=== PATIENT | male | born 1980 | race American Indian/Alaskan Native ===

== ENCOUNTER 2017-03-10 13:26 | Emergency (ER) | payer OTHER ==
[2017-03-10 15:33] VITALS: BP 128/86
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
[2017-03-10] MEDS ORDERED: DELTASONE PO ONE (18:22)
[2017-03-10] MEDS ORDERED: ULTRAM PO ONE (18:22)
[2017-03-10] MEDS ORDERED: FLEXERIL PO ONE (18:22)
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
== END 2017-03-10 19:03 | disposition home or self-care (01) ==
LOC: ED 13:26
DX: M54.9 Dorsalgia, unspecified (principal); R51 Headache
CPT/HCPCS: 70450; 99283; J7512